=== PATIENT | male | born 1970 | race Hispanic/Latino ===

== ENCOUNTER 2024-08-22 12:47 | Emergency (ER) | payer OTHER ==
[2024-08-22 13:25] LABS: Absolute Basophils 0.1 K/uL (0-0.5); Absolute Eosinophils 0.3 K/uL (0-0.5); Absolute Lymphocytes (CBC) 1.7 K/uL (0.7-4.9); Absolute Monocytes 0.5 K/uL (0.1-1.3); Absolute Neutrophil 3.6 K/uL (1.8-8.0); Eosinophils % 5.6 % (0-4.4); Hematocrit 29.8 % (39.6-49.0); Hemoglobin 10.3 g/dL (13.6-17.9); Lymphocytes % 27.3 % (15.3-44.8); MCH 31.6 pg (27.0-35.0); MCHC 34.7 g/dL (32.0-36.0); MPV 8.2 fL (7.6-11.3); Monocytes % 7.5 % (3.3-12.3); Neutrophils % 58.6 % (41.7-73.7); Platelets 172 thou/uL (152-406); RBC Red Blood Cell Count 3.27 M/uL (4.33-5.43); Red Cell Distribution Width 15.2 % (12.1-15.2)
--- NOTE | 2024-08-22 13:57 | ER ---
Nurse's Notes [facility] Name: Eric Gan Age: 54 yrs Sex: Male : 1970 Arrival Date: 08/22/2024 Time: 12:47 Bed 19 Private MD: Diagnosis: End stage renal disease;Essential (primary) hypertension;Hyperkalemia Presentation: 08/22 12:48 Chief complaint: EMS states: toned out to [facility] for high blood pressure. Patient did me1 not receive dialysis today. Initial bp was 238/140. EMS established an 18g LAC and administered a total of labetolol 10 mg IV. BP decreased to 204/117. Coronavirus screen: At this time, the client does not indicate any symptoms associated with coronavirus-19. Ebola Screen: No symptoms or risks identified at this time. Initial Sepsis Screen: Does the patient meet any 2 criteria? No. Patient's initial sepsis screen is negative. Does the patient have a suspected source of infection? No. Patient's initial sepsis screen is negative. Risk Assessment: Do you want to hurt yourself or someone else? Patient reports no desire to harm self or others. Onset of symptoms was August 22, 2024. 12:48 Method Of Arrival: EMS: [place] [id number] 12:48 Acuity: [place] 3 me1 Triage Assessment: 12:57 General: Appears in no apparent distress. well groomed, well developed, well nourished, me1 Behavior is calm, cooperative, appropriate for age. Pain: Denies pain. EENT: No signs and/or symptoms were reported regarding the EENT system. Neuro: Level of Consciousness is awake, alert, obeys commands, Oriented to person, place, time, situation, Appropriate for age. Cardiovascular: Denies chest pain, shortness of breath, Patient's skin is warm and dry. Respiratory: Airway is patent Respiratory effort is even, unlabored, Respiratory pattern is regular, symmetrical. GI: No signs and/or symptoms were reported involving the gastrointestinal system. : Reports ESRD on HD, not dialyzed today. Derm: Skin is intact, is healthy with good turgor, Skin is pink, warm \T\ dry. Musculoskeletal: No signs and/or symptoms reported regarding the musculoskeletal system. Historical: - Allergies: 12:57 No Known Allergies; me1 - PMHx: 12:57 End stage renal disease; hemodialysis; Hypertensive disorder; Hypercholesterolemia; me1 Diabetes mellitus; - PSHx: 12:57 dialysis access; me1 - Immunization history:: Adult Immunizations unknown. - Infectious Disease History:: Denies. - Social history:: Smoking status: unknown. - Family history:: not pertinent. - Hospitalizations: : No recent hospitalization is reported. Screenin:59 [facility] ED Fall Risk Assessment (Adult) History of falling in the last 3 months, me1 including since admission No falls in past 3 months (0 pts) Confusion or Disorientation No (0 pts) Intoxicated or Sedated No (0 pts) Impaired Gait No (0 pts) Mobility Assist Device Used No (0 pt) Altered Elimination No (0 pt) Score/Fall Risk Level 0 - 2 = Low Risk Maintained a safe environment, Provided non-skid footwear, Hourly rounding (assess needs \T\ fall precautionary measures) done. Abuse screen: Denies threats or abuse. Nutritional screening: No deficits noted. Tuberculosis screening: No symptoms or risk factors identified. Assessment: 12:59 General: See triage assessment. me1 Vital Signs: 12:48 BP 213 / 103; Pulse 74; Resp 17; Temp 98.1; Pulse Ox 98% ; Weight 81 kg; Height 5 ft. 6 me1 in. ; Pain 0/10; 13:15 BP 178 / 99; Pulse 76; Resp 16; Pulse Ox 99% ; me1 13:58 BP 165 / 99; Pulse 79; Resp 15; Pulse Ox 98% ; me1 14:15 BP 141 / 82; Pulse 73; Resp 12; Temp 98.4; Pulse Ox 97% ; me1 12:48 Body Mass Index 28.82 (81.00 kg, 167.64 cm) me1 12:48 Pain Scale: Adult me1 ED Course: 12:48 Patient arrived in ED. me1 12:49 Wade Joya MD is Attending Physician. rn 12:57 Triage completed. me1 12:57 Arm band placed on Patient placed in an exam room. me1 12:59 Patient has correct armband on for positive identification. Bed in low position. Call ok1 light in reach. Side rails up X2. Provided Education on: POC. Verbalized understanding.. Client placed on continuous cardiac and pulse oximetry monitoring. NIBP monitoring applied. supervisor erection shop on. Pulse ox on. NIBP on. 12:59 No provider procedures requiring assistance completed. Maintain EMS IV. Dressing me1 intact. Good blood return noted. Site clean \T\ dry. Gauge \T\ site: 18g LAC. Flushed with 10 mL NS. 13:15 Kimmy Rivera, RN is Primary Nurse. me1 13:19 XRAY Chest (1 view) In Process Unspecified. EDMS 13:20 CBC with Diff Sent. me1 13:20 Basic Metabolic Panel Sent. me1 13:20 BNP Sent. me1 13:33 Initial lab(s) drawn, by me, sent to lab. EKG done, by ED staff, reviewed by Wade ma1 To[facility]. 13:55 Heath Reyna is Hospitalizing Provider. rn 14:36 IV discontinued, intact, bleeding controlled, No redness/swelling at site. Pressure me1 dressing applied. Administered Medications: 14:19 Drug: Insulin Regular Human IVP 5 units IVP once {Co-Signature: [email or web address] (Blayne Rey RN).} me1 Route: IVP; Site: left forearm; 14:25 Follow up: Response: No adverse reaction me1 14:23 Drug: D50W IVP 50 ml IVP once; (1 amp) Route: IVP; Site: left forearm; me1 14:25 Follow up: Response: No adverse reaction me1 14:23 Drug: Kayexalate PO 15 grams PO once Route: PO; me1 14:25 Follow up: Response: No adverse reaction me1 14:25 Not Given (blood pressure decreased to 141/82b): [id number] mg IVP once me1 Medication: 12:59 VIS not applicable for this client. me1 Outcome: 13:56 Decision to Hospitalize by Provider. rn 14:27 Discharge ordered by MD. rn 14:36 Discharged to home via wheelchair, with family, me1 14:36 Condition: stable 14:36 Discharge instructions given to patient, family, Instructed on discharge instructions, follow up and referral plans. Demonstrated understanding of instructions, follow-up care, 14:36 Patient left the ED. me1 Signatures: Dispatcher [employer] EDMS Wade Joya MD MD rn Eddleman, Michelle, RN RN me1 Blayne Rey RN [email or web address]
--- NOTE | 2024-08-22 13:57 | EDPHYS ---
Physician Documentation [facility] Name: Eric Gan Age: 54 yrs Sex: Male : 1970 Arrival Date: 08/22/2024 Time: 12:47 Bed 19 Private MD: ED Physician Wade Joya HPI: 08/22 13:30 This 54 yrs old Male presents to ER via EMS with complaints of Blood Pressure Problem. rn 13:30 The patient has elevated blood pressure and discovered this at a physician's office. rn Onset: The symptoms/episode began/occurred at an unknown time. Patient reports went to dialysis today, sat there for a while and when they checked his vital signs his blood pressure was very high. Given 10 mg of labetalol by EMS. Patient is otherwise asymptomatic. States this happens sometimes when he goes to dialysis. Denies any chest pain or shortness of breath. No back or abdominal pain. No focal neurological deficit. States took his medication prior to dialysis and takes it again at night. Patient states he feels completely fine. Last dialysis was Thursday.. Historical: - Allergies: 12:57 No Known Allergies; me1 - PMHx: 12:57 End stage renal disease; hemodialysis; Hypertensive disorder; Hypercholesterolemia; me1 Diabetes mellitus; - PSHx: 12:57 dialysis access; me1 - Immunization history:: Adult Immunizations unknown. - Infectious Disease History:: Denies. - Social history:: Smoking status: unknown. - Family history:: not pertinent. - Hospitalizations: : No recent hospitalization is reported. ROS: 13:30 Constitutional: Negative for fever, chills, and weight loss, Eyes: Negative for injury, rn pain, redness, and discharge, Neck: Negative for injury, pain, and swelling, Cardiovascular: Negative for chest pain, palpitations, and edema, Respiratory: Negative for shortness of breath, cough, wheezing, and pleuritic chest pain, Abdomen/GI: Negative for abdominal pain, nausea, vomiting, diarrhea, and constipation, Back: Negative for injury and pain, : Negative for injury, bleeding, discharge, and swelling, MS/Extremity: Negative for injury and deformity, Skin: Negative for injury, rash, and discoloration, Neuro: Negative for headache, weakness, numbness, tingling, and seizure, Exam: 13:30 Constitutional: This is a well developed, well nourished patient who is awake, alert, rn and in no acute distress. Head/Face: Normocephalic, atraumatic. Cardiovascular: Regular rate and rhythm. No pulse deficits. Respiratory: Speaking full sentences, unlabored. No increased work of breathing, no retractions or nasal flaring. Abdomen/GI: Soft, non-tender MS/ Extremity: Pulses equal, no cyanosis. Neuro: Awake and alert, GCS 15, oriented to person, place, time, and situation. Cranial nerves II-XII grossly intact. Motor strength 5/5 in all extremities. Sensory grossly intact. Cerebellar exam normal. 16:40 ECG was reviewed by the Attending Physician. rn Vital Signs: 12:48 BP 213 / 103; Pulse 74; Resp 17; Temp 98.1; Pulse Ox 98% ; Weight 81 kg; Height 5 ft. 6 me1 in. ; Pain 0/10; 13:15 BP 178 / 99; Pulse 76; Resp 16; Pulse Ox 99% ; me1 13:58 BP 165 / 99; Pulse 79; Resp 15; Pulse Ox 98% ; me1 14:15 BP 141 / 82; Pulse 73; Resp 12; Temp 98.4; Pulse Ox 97% ; me1 12:48 Body Mass Index 28.82 (81.00 kg, 167.64 cm) me1 12:48 Pain Scale: Adult me1 MDM: 12:49 Medical Screening Exam initiated rn 13:53 Differential diagnosis: hypertensive crisis, Malignant HTN. Data reviewed: vital signs, rn nurses notes, lab test result(s), EKG, radiologic studies, and as a result, I will admit patient. 13:54 Counseling: I had a detailed discussion with the patient and/or guardian regarding the rn historical points, exam findings, and any diagnostic results supporting the discharge/admit diagnosis, lab results, radiology results, the need for further work-up and treatment in the hospital. ED course: I personally spent 35 minutes engaged in work directly related to the individual patient's care. This does not include any time spent performing procedures. The patient has been deemed critically ill because of severe hypertension requiring IV blood pressure management as well as hyperkalemia requiring organization of emergent dialysis. 14:25 ED course: Family member arrived and when notified of admission she did not want him rn admitted. She understands the risks of taking him home. She was considering taking him to [facility] to get emergent dialysis but instead we contacted [facility] and they state they can dialyze him immediately if we discharged him. He has a chair at 3 PM. Family member comfortable taking him as opposed to admission.. 08/22 12:56 Order name: CBC with Diff; Complete Time: 13:50 rn 08/22 12:56 Order name: Basic Metabolic Panel; Complete Time: 13:50 rn 08/22 12:56 Order name: BNP; Complete Time: 13:50 rn 08/22 12:56 Order name: XRAY Chest (1 view); Complete Time: 14:28 rn 08/22 12:56 Order name: IV Start; Complete Time: 13:20 rn 08/22 12:56 Order name: Cardiac monitoring; Complete Time: 13:20 rn 08/22 12:56 Order name: O2 Sat Monitoring; Complete Time: 13:20 rn 08/22 12:56 Order name: EKG - Nurse/Tech; Complete Time: 13:33 rn 08/22 12:56 Order name: EKG - Nurse/Tech; Complete Time: 13:33 rn EC:40 Rate is 74 beats/min. Rhythm is regular. Left axis deviation noted. QRS is positive in rn lead I and negative in lead aVF. MD interval is normal. QRS interval is normal. QT interval is normal. No Q waves. T waves are Normal. No ST changes noted. Clinical impression: NSR w/ Non-specific ST/T Changes. Interpreted by me. Reviewed by me. Administered Medications: 14:19 Drug: Insulin Regular Human IVP 5 units IVP once {Co-Signature: [email or web address] (Blayne Rey RN).} me1 Route: IVP; Site: left forearm; 14:25 Follow up: Response: No adverse reaction me1 14:23 Drug: D50W IVP 50 ml IVP once; (1 amp) Route: IVP; Site: left forearm; me1 14:25 Follow up: Response: No adverse reaction me1 14:23 Drug: Kayexalate PO 15 grams PO once Route: PO; me1 14:25 Follow up: Response: No adverse reaction me1 14:25 Not Given (blood pressure decreased to 141/82b): [id number] mg IVP once me1 Disposition Summary: 08/22/24 14:27 Discharge Ordered Notes: Location: Home(08/22/24 14:27) rn Problem: chronic(08/22/24 14:27) rn Symptoms: have improved(08/22/24 14:27) rn Condition: Stable(08/22/24 14:27) rn Diagnosis - End stage renal disease(08/22/24 14:27) rn - Essential (primary) hypertension(08/22/24 14:27) rn - Hyperkalemia(08/22/24 14:27) rn Followup: rn - With: Private Physician - When: Upon discharge from the Emergency Department - Reason: Recheck today's complaints, Continuance of care, Re-evaluation by your physician Discharge Instructions: - Discharge Summary Sheet rn - Hyperkalemia rn - Hypertension, Adult rn - resident care manager rn - End-Stage Kidney Disease rn - Managing Your Hypertension rn Forms: - Medication Reconciliation Form rn - Antibiotic furniture maker - Prescription Opioid Use rn - Patient Portal Instructions rn - Leadership Thank You Letter furnace charger time excluding procedures: 13:54 Critical care time: Bedside Care: 30 minutes, Consultation: 5 minutes. Total time: 35 rn minutes Signatures: Dispatcher [employer] EDMS Wade Joya MD MD rn Eddleman, Michelle, RN RN me1 Blayne Rey RN [email or web address] Corrections: (The following items were deleted from the chart) 12:56 12:56 CBC+H.LAB.BRZ ordered. EDMS EDMS 12:56 12:56 BASIC METABOLIC PANEL+C.LAB.BRZ ordered. EDMS EDMS 12:56 12:56 PROBNP+C.LAB.BRZ ordered. EDMS EDMS 12:57 12:57 Chest Single View+RAD.RAD.BRZ ordered. EDMS EDMS 14:26 13:56 Observation rn rn 14:26 13:56 Heath Reyna rn rn 14:26 13:56 Telemetry/MedSurg (observation) rn rn 14: 13:56 Stable rn rn 14: 13:56 new rn rn 14: 13:56 have improved rn rn 14:26 13:56 Standard rn rn 14:26 13:56 rn rn 14:26 13:56 Essential (primary) hypertension rn rn 14: 13:56 Hyperkalemia rn rn 14:26 13:56 End stage renal disease rn rn
[2024-08-22] MEDS ORDERED: INSULIN REGULAR (HUMAN) 100 UNIT/ML ONE (14:16)
[2024-08-22] MEDS ORDERED: D50W 25 GM/50 ML SYRINGE IV ONE (14:17)
[2024-08-22] MEDS ORDERED: SOD POLYSTYREN SUL 15 GM/60 ML UCUP ONE (14:17)
--- NOTE | 2024-08-22 14:25 | RAD REPORT ---
Procedure: Chest Single View HISTORY: Hypertension COMPARISON: none FINDINGS: The lungs appear clear of acute infiltrate. No significant pleural effusion noted. The heart is normal size.. Central venous catheter with its tip in the SVC. IMPRESSION: No acute abnormality is displayed.
[2024-08-22 16:43] VITALS: BP 141/82; TEMP 98.4; O2SAT 97
== END 2024-08-22 14:36 | disposition home or self-care (01) ==
LOC: ER 12:47
DX: I12.0 Hypertensive chronic kidney disease with stage 5 chronic kidney disease or end stage renal disease (principal); Z99.2 Dependence on renal dialysis; E87.5 Hyperkalemia
CPT/HCPCS: 93005; 85025; 80048; 36415; 83880; 71045; 96375; 96374; 99285; J1815